=== PATIENT | male | born 1935 | race Hispanic/Latino ===

== ENCOUNTER → 2018-05-23 | Outpatient (CLI) | payer OTHER, MEDICARE ==
[~2018-05-23] MED LIST: DONE10TA36 PO; INSU100I21 SQ; MEMA10TA20 PO; METF-446 PO
== END | disposition home or self-care (01) ==
LOC: SHCH 13:31
PROVIDERS: ATTEND Internal Medicine Cardiovascular Disease
DX: R94.31 Abnormal electrocardiogram [ECG] [EKG] (principal); I51.7 Cardiomegaly
CPT/HCPCS: 93306

== ENCOUNTER 2018-11-29 20:58 | Emergency (ER) | payer OTHER, MEDICARE ==
[2018-11-29] MEDS ORDERED: LIDOCAINE HCL-MPF 1% 2ML VIAL ONE (21:25)
[2018-11-29] MEDS ORDERED: CEFTRIAXONE SODIUM 1 GM ONE (21:25)
[2018-11-29 21:56] LABS: BASOPHILS % (AUTO) 0.6 % (0.0-5.0); EOSINOPHILS % (AUTO) 3.3 % (0.0-8.0); HEMATOCRIT 38.2 % (42-54); LYMPHOCYTES % (AUTO) 31.3 % (21.0-51.0); MEAN CORPUSCULAR HEMOGLOBIN 30.2 pg (27.0-33.0); MEAN CORPUSCULAR HGB CONC 33.8 g/dL (32.0-36.0); MEAN CORPUSCULAR VOLUME 89.3 fL (79-99); MONOCYTES % (AUTO) 6.5 % (3.0-13.0); NEUTROPHILS % (AUTO) 58.3 % (40.0-77.0); PLATELET COUNT (AUTO) 131 K/uL (130-400); RED BLOOD CELL COUNT(AUTO) 4.28 MIL/uL (4.50-6.20); RED CELL DISTRIBUTION WIDTH 13.4 % (11.0-15.5); WHITE BLOOD COUNT (AUTO) 7.2 K/uL (4.8-10.8)
[2018-11-29 22:07] LABS: CREATININE 1.3 mg/dL (0.5-1.5); POTASSIUM 4.2 mmol/L (3.5-5.1)
[2018-11-29 22:12] LABS: ALBUMIN 3.3 g/dL (3.5-5.0); BILIRUBIN,TOTAL 0.3 mg/dL (0.2-1.0); TOTAL PROTEIN, SERUM 6.9 g/dL (6.0-8.3)
== END 2018-11-29 22:39 | disposition home or self-care (01) ==
LOC: EDH 20:58
DX: L03.115 Cellulitis of right lower limb (principal); E11.9 Type 2 diabetes mellitus without complications; F03.90 Unspecified dementia, unspecified severity, without behavioral disturbance, psychotic disturbance, mood disturbance, and anxiety; E78.5 Hyperlipidemia, unspecified; Z79.4 Long term (current) use of insulin
CPT/HCPCS: 36415; 80053; 85025; 96372; 99284; J0696; J3490

== ENCOUNTER 2019-09-30 08:56 | Emergency (ER) | payer OTHER, MEDICARE ==
[~2019-09-30 08:56] MED LIST changes: -MEMA10TA20 PO; +MEMA10TA55 PO
[2019-09-30] MEDS ORDERED: ACETAMINOPHEN 325 MG TAB ONE (10:00)
== END 2019-09-30 11:35 | disposition home or self-care (01) ==
LOC: EDH 08:56
DX: S00.03XA Contusion of scalp, initial encounter (principal); W18.39XA Other fall on same level, initial encounter; Y93.89 Activity, other specified; Y92.89 Other specified places as the place of occurrence of the external cause; Y99.8 Other external cause status; S13.9XXA Sprain of joints and ligaments of unspecified parts of neck, initial encounter; F03.90 Unspecified dementia, unspecified severity, without behavioral disturbance, psychotic disturbance, mood disturbance, and anxiety; E11.9 Type 2 diabetes mellitus without complications; E78.5 Hyperlipidemia, unspecified; Z87.891 Personal history of nicotine dependence; Z79.899 Other long term (current) drug therapy
CPT/HCPCS: 70450; 71045; 72125; 72170

== ENCOUNTER 2020-04-16 23:45 | Inpatient (IN) | payer OTHER, MEDICARE ==
[~2020-04-16] VITALS: Ht 175.3 cm; Wt 76.8 kg
[2020-04-17 00:26] LABS: ABG BASE EXCESS -0.3 mmol/L (-2.0-3.0); ABG HCO3 23.4 mmol/L (21.0-28.0); ABG OXYGEN SATURATION 95.3 % (95.0-99.0); ABG PCO2 36 mmHg (35-48)
[2020-04-17 00:35] LABS: BASOPHILS % (AUTO) 0.3 % (0.0-5.0); EOSINOPHILS % (AUTO) 0.3 % (0.0-8.0); HEMATOCRIT 41.3 % (42-54); LYMPHOCYTES % (AUTO) 3.2 % (21.0-51.0); MEAN CORPUSCULAR HEMOGLOBIN 29.6 pg (27.0-33.0); MEAN CORPUSCULAR HGB CONC 33.9 g/dL (32.0-36.0); MEAN CORPUSCULAR VOLUME 87.3 fL (79-99); MONOCYTES % (AUTO) 2.5 % (3.0-13.0); NEUTROPHILS % (AUTO) 93.2 % (40.0-77.0); PLATELET COUNT (AUTO) 152 K/uL (130-400); RED BLOOD CELL COUNT(AUTO) 4.73 MIL/uL (4.50-6.20); RED CELL DISTRIBUTION WIDTH 13.3 % (11.0-15.5); WHITE BLOOD COUNT (AUTO) 13.5 K/uL (4.8-10.8)
[2020-04-17 00:36] LABS: POTASSIUM 3.9 mmol/L (3.5-5.1)
[2020-04-17 00:37] LABS: CREATININE 1.4 mg/dL (0.5-1.5)
[2020-04-17 00:47] LABS: ALBUMIN 3.4 g/dL (3.5-5.0); BILIRUBIN,TOTAL 0.5 mg/dL (0.2-1.0); TOTAL PROTEIN, SERUM 7.3 g/dL (6.0-8.3); TROPONIN I 0.59 ng/mL (0.00-0.06)
[2020-04-17 00:59] LABS: INR 0.99 (0.85-1.15); PARTIAL THROMBOPLASTIN TIME 21.2 SEC (26.3-35.5); PROTHROMBIN TIME 10.7 SEC (9.6-11.6)
[2020-04-17] MEDS ORDERED: IOHEXOL-350 75 ML VIAL IV ONE (01:06)
[2020-04-17] MEDS ORDERED: AZITHROMYCIN 500MG+NS 250ML 250 ML IV ONE (01:23)
[2020-04-17] MEDS ORDERED: CEFTRIAXONE SODIUM 1 GM ONE (01:23)
[2020-04-17] MEDS ORDERED: LACTULOSE 20 GM/30 ML UDCUP PO PRN (02:00)
[2020-04-17] MEDS: CEFTRIAXONE SODIUM 1 GM IVP SCH ×2 (02:00→14:09)
[2020-04-17] MEDS ORDERED: ERGOCALCIFEROL (VITAMIN D2) 50,000 UNIT CAPSULE PO ONE (02:00)
[2020-04-17] MEDS ORDERED: DOXYCYCLINE 100MG+NS 250ML IV SCH (02:00)
[2020-04-17] MEDS ORDERED: ONDANSETRON HCL 4 MG/2 ML VIAL IV PRN (02:00)
[2020-04-17] MEDS ORDERED: DOXYCYCLINE 100MG+NS 250ML 250 ML IV ONE (02:28)
[2020-04-17] MEDS ORDERED: INSULIN HUMULIN R 100 UNIT/ML 3ML ONE (02:52)
[2020-04-17 03:07] LABS: APPEARANCE,URINE Clear (CLEAR); BILIRUBIN,URINE Negative (NEGATIVE); COLOR,URINE Yellow (YELLOW); GLUCOSE, URINE (UA) 500 mg/dL (NEGATIVE); KETONES,URINE Negative (NEGATIVE); LEUKOCYTE ESTERASE ,URINE Negative (NEGATIVE); NITRATE,URINE Negative (NEGATIVE); OCCULT BLOOD,URINE Negative (NEGATIVE); PH,URINE 5.5 (5.0-8.0); PROTEIN,URINE POS 1+ mg/dL (NEGATIVE)
[2020-04-17 03:48] LABS: TROPONIN I 1.23 ng/mL (0.00-0.06)
[2020-04-17] MEDS ORDERED: HEPARIN SODIUM 5000UNIT/ML 1ML VIAL ONE (04:01)
[2020-04-17] MEDS ORDERED: HEPARIN 25000 UNITS/250 ML D5W 250 ML IV ONE (04:01)
[2020-04-17 05:05] VITALS: BP 147/52
[2020-04-17] MEDS ORDERED: HEPARIN 25000 UNITS/D5W 250ML IV SCH (05:15)
[2020-04-17 05:39] LABS: CHOLESTEROL 179 mg/dL (<200); HDL CHOLESTEROL 45 mg/dL (29-71); LDL DIRECT 113 mg/dL (0-99); TRIGLYCERIDES 135 mg/dL (30-200)
[2020-04-17 05:41] LABS: HEMOGLOBIN A1C 8.3 % (4.0-6.0)
[2020-04-17 07:22] LABS: INR 1.03 (0.85-1.15); PARTIAL THROMBOPLASTIN TIME 80.1 SEC (26.3-35.5); PROTHROMBIN TIME 11.1 SEC (9.6-11.6)
[2020-04-17] MEDS: INSULIN HUMULIN R 100 UNIT/ML 3ML SQ SCH ×4 (07:30→21:37)
[2020-04-17 07:55] VITALS: BP 150/51
[2020-04-17] MEDS ORDERED: METHYLPREDNISOLONE SOD SUCC 40MG/ML 1ML IVP SCH (09:00)
[2020-04-17] MEDS ORDERED: ENOXAPARIN SODIUM 40 MG/0.4 ML SYRINGE SQ SCH (09:00)
[2020-04-17] MEDS: ZINC SULFATE 220 CAPSULE PO SCH (10:49)
[2020-04-17] MEDS: FAMOTIDINE 20MG TAB 20 MG TAB PO SCH (10:49)
[2020-04-17] MEDS: ASCORBIC ACID 500 MG TAB PO SCH (10:50)
[2020-04-17 12:55] VITALS: BP 154/63
[2020-04-17] MEDS: DOXYCYCLINE 100MG+NS 250ML 250 ML IV SCH (14:11)
--- NOTE | 2020-04-17 15:36 | NUR ---
DC PLAN PATIENT LIVES WITH SPOUSE [facility] PAT[facility] HOME PHONE IS [phone]. PATIENT INDEPENDENT ABLE TO PERFORM ADL'S. PATIENT HAS NO SERVICES. WALKER ANS WHEEL CHAIR. FEELS SAFE TO RETURN HOME. Addendum: 04/17/20 at 1539 by BERT COBIAN RN CM Amended: Links added.
[2020-04-17 16:58] VITALS: BP 156/75
[2020-04-17 19:00] VITALS: BP 152/64
--- NOTE | 2020-04-17 19:12 | NUR ---
APPROX 1510P--STAFF NOTIFIED AUTHOR THAT PATIENT WAS IN THE RESTROOM WITH DAVIS DRAINING ON FLOOR AND LEFT HAND IV OUT WITH SMALL SCANTS OF BLOOD NOTED. PRESSURE HELD TO LEFT HAND SITE AND SECURED WITH TAPE WITH NO PROBLEMS. AT 1530--20 G PLACED IN RIGHT WRIST. NURSE INFORMED OF RECENT PTT LAB VALUE OF 100 PLUS. HEPARIN CONTINUES TO INFUSED IN RIGHT WRIST WITH NO S/S OF BLEEDING OR BRUISING NOTED 1830--UNABLE TO HANG DOXYCYCLINE IV MED DUE TO LACK OF IV DURING TOUR AND ATTEMPTS. INFORMED ONCOMING NURSE TO HANG IF NO OTHER DOSE IS NEEDED AT THIS TIME. NURSE VERBALIZE UNDERSTANDING
[2020-04-17 23:00] VITALS: BP 101/66
[2020-04-18] MEDS: CEFTRIAXONE SODIUM 1 GM IVP SCH ×2 (02:36→14:01)
[2020-04-18] MEDS: AZITHROMYCIN 500MG+NS 250ML 250 ML IV SCH (02:36)
[2020-04-18] MEDS: DOXYCYCLINE 100MG+NS 250ML 250 ML IV SCH ×2 (02:36→14:01)
[2020-04-18 03:00] VITALS: BP 107/91
[2020-04-18] MEDS ORDERED: CEFTRIAXONE SODIUM 1 GM IVP SCH (03:00)
[2020-04-18 04:02] LABS: BASOPHILS % (AUTO) 0.2 % (0.0-5.0); EOSINOPHILS % (AUTO) 0.4 % (0.0-8.0); HEMATOCRIT 29.4 % (42-54); LYMPHOCYTES % (AUTO) 14.9 % (21.0-51.0); MEAN CORPUSCULAR HEMOGLOBIN 30.2 pg (27.0-33.0); MEAN CORPUSCULAR HGB CONC 33.7 g/dL (32.0-36.0); MEAN CORPUSCULAR VOLUME 89.6 fL (79-99); MONOCYTES % (AUTO) 6.2 % (3.0-13.0); PLATELET COUNT (AUTO) 100 K/uL (130-400); RED BLOOD CELL COUNT(AUTO) 3.28 MIL/uL (4.50-6.20); RED CELL DISTRIBUTION WIDTH 13.6 % (11.0-15.5); WHITE BLOOD COUNT (AUTO) 9.2 K/uL (4.8-10.8)
[2020-04-18 04:15] LABS: ALBUMIN 2.2 g/dL (3.5-5.0); BILIRUBIN,TOTAL 0.4 mg/dL (0.2-1.0); CREATININE 0.9 mg/dL (0.5-1.5); CRP QUANTITATIVE 77.1 mg/L (0.00-9.0); TOTAL PROTEIN, SERUM 4.9 g/dL (6.0-8.3)
[2020-04-18 04:18] LABS: POTASSIUM 2.9 mmol/L (3.5-5.1)
[2020-04-18 04:21] LABS: INR 1.35 (0.85-1.15); PROTHROMBIN TIME 14.4 SEC (9.6-11.6)
[2020-04-18 04:24] LABS: PARTIAL THROMBOPLASTIN TIME > 120.0 SEC (26.3-35.5)
--- NOTE | 2020-04-18 04:45 | NUR ---
LABS ABNORMAL LAB RESULTS CALLED IN H&H=9.9---TGFG=475---I+=2.9. BAND LINING BANDER CRISTINA Mcclain NP CONTACTED AND UPDATED OF ABNORMAL LABS. ORDERS GIVEN FOLLOWS 1) OBTAIN STOOL FOR OCCULT BLOOD 2)START POTASSIUM PROTOCOL AND GIVE DOSE PER PROTOCOL 3)CONT. TO FOLLOW HEPARIN PROTOCOL FOR APTT.ORDERS READ BACK AND TRANSCRIBED. PATIENT IN BED RESTING, NO C/O PAIN OR DISTRESS. CALL DEVICE WITHIN REACH WILL CONT. TO MONITOR.
[2020-04-18] MEDS: POTASSIUM CHLORIDE 20 MEQ ERTAB PO PRN ×4 (05:00→12:34)
[2020-04-18] MEDS ORDERED: POTASSIUM CHLORIDE 20MEQ/100ML 100 ML IV PRN (05:00)
[2020-04-18] MEDS ORDERED: LIDOCAINE HCL-MPF 1% 2ML VIAL IV PRN (05:00)
[2020-04-18] MEDS: INSULIN HUMULIN R 100 UNIT/ML 3ML SQ SCH ×4 (07:03→20:17)
[2020-04-18 08:00] VITALS: BP 152/61
[2020-04-18] MEDS: ASCORBIC ACID 500 MG TAB PO SCH (09:08)
[2020-04-18] MEDS: ZINC SULFATE 220 CAPSULE PO SCH (09:09)
[2020-04-18] MEDS: FAMOTIDINE 20MG TAB 20 MG TAB PO SCH (09:09)
[2020-04-18 12:27] VITALS: BP 161/67
--- NOTE | 2020-04-18 15:00 | NUR ---
As of 1100 am Current PTT of 78.3, infusing rated decreased to 11 units/hr in which is 8.8 ml/hr. Heparin continues to infuse to left wrist with no s/s of bleeding or bruising noted to site at this time. patient denies any chest pain or discomfort during the tour. will continue to monitor as needed during tour.
[2020-04-18 16:58] VITALS: BP 157/69
[2020-04-18 19:00] VITALS: BP 159/58
--- NOTE | 2020-04-18 21:00 | NUR ---
FULL REPORT GIVEN TO NURSE ON 4TH FLOOR AWARE OF PTT PENDING AND POTASSIUM LEVEL PENDING
--- NOTE | 2020-04-18 21:01 | NUR ---
PT DENIES SOB, DENIES CHEST PAIN HEPARIN AT 11 UNITS / HR
[2020-04-19] VITALS (8 sets, daily range): BP systolic 115–172; BP diastolic 50–61
[2020-04-19] MEDS: DOXYCYCLINE 100MG+NS 250ML 250 ML IV SCH ×2 (02:00→13:28)
[2020-04-19] MEDS: CEFTRIAXONE SODIUM 1 GM IVP SCH ×2 (02:16→13:29)
[2020-04-19] MEDS: AZITHROMYCIN 500MG+NS 250ML 250 ML IV SCH (02:17)
[2020-04-19 06:03] LABS: BASOPHILS % (AUTO) 0.4 % (0.0-5.0); EOSINOPHILS % (AUTO) 3.4 % (0.0-8.0); HEMATOCRIT 38.1 % (42-54); LYMPHOCYTES % (AUTO) 26.2 % (21.0-51.0); MEAN CORPUSCULAR HEMOGLOBIN 29.8 pg (27.0-33.0); MEAN CORPUSCULAR HGB CONC 33.6 g/dL (32.0-36.0); MEAN CORPUSCULAR VOLUME 88.6 fL (79-99); MONOCYTES % (AUTO) 7.5 % (3.0-13.0); NEUTROPHILS % (AUTO) 62.1 % (40.0-77.0); PLATELET COUNT (AUTO) 125 K/uL (130-400); RED CELL DISTRIBUTION WIDTH 14.2 % (11.0-15.5); WHITE BLOOD COUNT (AUTO) 7.9 K/uL (4.8-10.8)
[2020-04-19 06:27] LABS: ALBUMIN 2.8 g/dL (3.5-5.0); BILIRUBIN,TOTAL 0.4 mg/dL (0.2-1.0); CRP QUANTITATIVE 82.1 mg/L (0.00-9.0); POTASSIUM 4.1 mmol/L (3.5-5.1); TOTAL PROTEIN, SERUM 6.4 g/dL (6.0-8.3)
[2020-04-19] MEDS: INSULIN HUMULIN R 100 UNIT/ML 3ML SQ SCH ×4 (07:03→21:19)
--- NOTE | 2020-04-19 08:00 | NUR ---
1:[address], AT PRESENT PT. CONFUSED, TALKING RANDOMLY. HEPARIN DRIP IN PLACE AND INFUSING AT 11 ML/HR NO DISCOMFORT VOICED.
[2020-04-19] MEDS: ZINC SULFATE 220 CAPSULE PO SCH (08:51)
[2020-04-19] MEDS: FAMOTIDINE 20MG TAB 20 MG TAB PO SCH (08:51)
[2020-04-19] MEDS: ASCORBIC ACID 500 MG TAB PO SCH (08:51)
--- NOTE | 2020-04-19 10:05 | NUR ---
DR. SHI IN TO SEE PT. STATES DR. ALEGRE WILL SEE PT. IN AM AND TO NPO AT MIDNIGHT.
[2020-04-19] MEDS ORDERED: VANCOMYCIN PROTOCOL PER PHARMACY IV SCH (11:15)
[2020-04-19] MEDS ORDERED: VANCOMYCIN 1.5 GM in SODIUM CHLORIDE 0.9% 250 ML IV SCH (11:30)
[2020-04-19] MEDS ORDERED: COMPOUND IV REFRIGERATED 1 EACH IVSOLN MISC PRN (11:45)
[2020-04-19] MEDS: VANCOMYCIN 750MG + NS 250 ML IV SCH ×2 (21:07)
[2020-04-20] MEDS: DOXYCYCLINE 100MG+NS 250ML 250 ML IV SCH ×2 (03:14→15:43)
[2020-04-20] MEDS: CEFTRIAXONE SODIUM 1 GM IVP SCH ×2 (03:14→15:44)
[2020-04-20 03:54] VITALS: BP 151/71
[2020-04-20 05:27] LABS: BASOPHILS % (AUTO) 0.5 % (0.0-5.0); EOSINOPHILS % (AUTO) 3.8 % (0.0-8.0); HEMATOCRIT 38.5 % (42-54); LYMPHOCYTES % (AUTO) 22.9 % (21.0-51.0); MEAN CORPUSCULAR HEMOGLOBIN 29.7 pg (27.0-33.0); MEAN CORPUSCULAR HGB CONC 33.5 g/dL (32.0-36.0); MEAN CORPUSCULAR VOLUME 88.5 fL (79-99); MONOCYTES % (AUTO) 6.5 % (3.0-13.0); NEUTROPHILS % (AUTO) 65.8 % (40.0-77.0); PLATELET COUNT (AUTO) 138 K/uL (130-400); RED BLOOD CELL COUNT(AUTO) 4.35 MIL/uL (4.50-6.20); WHITE BLOOD COUNT (AUTO) 8.8 K/uL (4.8-10.8)
[2020-04-20 05:54] LABS: ALBUMIN 2.8 g/dL (3.5-5.0); BILIRUBIN,TOTAL 0.4 mg/dL (0.2-1.0); CREATININE 1.1 mg/dL (0.5-1.5); CRP QUANTITATIVE 50.6 mg/L (0.00-9.0); POTASSIUM 4.3 mmol/L (3.5-5.1); TOTAL PROTEIN, SERUM 6.7 g/dL (6.0-8.3)
[2020-04-20] MEDS: INSULIN HUMULIN R 100 UNIT/ML 3ML SQ SCH ×4 (06:42→21:00)
[2020-04-20 08:00] VITALS: BP 187/65
[2020-04-20 12:00] VITALS: BP 110/69
[2020-04-20] MEDS: ZINC SULFATE 220 CAPSULE PO SCH (15:43)
[2020-04-20] MEDS: VANCOMYCIN 750MG + NS 250 ML IV SCH ×4 (15:43→21:35)
[2020-04-20] MEDS: ASCORBIC ACID 500 MG TAB PO SCH (15:43)
[2020-04-20] MEDS: FAMOTIDINE 20MG TAB 20 MG TAB PO SCH (15:43)
[2020-04-20 16:00] VITALS: BP 110/69
--- NOTE | 2020-04-20 18:50 | NUR ---
Neuro was consulted and made rounds todat. CT head without contrast was ordered and performed. Results reviewed by Dr Garcia. ID made rounds and ordered to continue current therapy. Heparin d/c'd. Diet ordered and pt refused. No complaints of pain or signs of acute distress. Family that work's here visited and daughter called. Pacemaker pending clearance by ID.
[2020-04-20 20:05] VITALS: BP 167/92
[2020-04-20 23:39] VITALS: BP 189/66
[2020-04-21] VITALS (7 sets, daily range): BP systolic 135–200; BP diastolic 51–71
[2020-04-21] MEDS: CEFTRIAXONE SODIUM 1 GM IVP SCH ×2 (02:53→14:52)
[2020-04-21] MEDS: DOXYCYCLINE 100MG+NS 250ML 250 ML IV SCH (02:54)
[2020-04-21] MEDS: INSULIN HUMULIN R 100 UNIT/ML 3ML SQ SCH ×4 (07:30→20:51)
--- NOTE | 2020-04-21 07:48 | NUR ---
MISSED [facility] FROM YESTERDAY 04/20/20 2100. CALLED PHARMACIST, MAXWELL AND ORDERED VT STAT.
[2020-04-21] MEDS: ASCORBIC ACID 500 MG TAB PO SCH (08:48)
[2020-04-21] MEDS: ZINC SULFATE 220 CAPSULE PO SCH (08:48)
[2020-04-21] MEDS: FAMOTIDINE 20MG TAB 20 MG TAB PO SCH (08:49)
[2020-04-21] MEDS: ACETAMINOPHEN 325 MG TAB PO PRN (09:02)
[2020-04-21] MEDS: VANCOMYCIN 1GM+NS 250ML 250 ML IV SCH ×2 (10:11→21:49)
[2020-04-21] MEDS: AMPICILLIN 2GM+NS 100ML 100 ML IV SCH ×3 (10:15→22:15)
[2020-04-21] MEDS: LISINOPRIL 10 MG TABLET PO SCH (10:52)
[2020-04-21] MEDS ORDERED: ZOLPIDEM TARTRATE 5 MG TAB PO SCH (21:00)
[2020-04-22] VITALS: BP 179/63
[2020-04-22] MEDS: CEFTRIAXONE SODIUM 1 GM IVP SCH ×2 (02:00→14:00)
[2020-04-22] MEDS ORDERED: SODIUM CHLORIDE 0.9% 500ML 500 ML IV ONE (03:17)
[2020-04-22 03:48] VITALS: BP 152/61
[2020-04-22] MEDS: AMPICILLIN 2GM+NS 100ML 100 ML IV SCH ×4 (04:15→22:33)
[2020-04-22 06:07] LABS: BASOPHILS % (AUTO) 0.2 % (0.0-5.0); EOSINOPHILS % (AUTO) 2.1 % (0.0-8.0); HEMATOCRIT 38.9 % (42-54); LYMPHOCYTES % (AUTO) 13.3 % (21.0-51.0); MEAN CORPUSCULAR HEMOGLOBIN 29.8 pg (27.0-33.0); MEAN CORPUSCULAR HGB CONC 33.9 g/dL (32.0-36.0); MEAN CORPUSCULAR VOLUME 87.8 fL (79-99); NEUTROPHILS % (AUTO) 74.1 % (40.0-77.0); PLATELET COUNT (AUTO) 150 K/uL (130-400); RED BLOOD CELL COUNT(AUTO) 4.43 MIL/uL (4.50-6.20); RED CELL DISTRIBUTION WIDTH 13.9 % (11.0-15.5); WHITE BLOOD COUNT (AUTO) 8.9 K/uL (4.8-10.8)
[2020-04-22 06:34] LABS: ALBUMIN 2.7 g/dL (3.5-5.0); BILIRUBIN,TOTAL 0.7 mg/dL (0.2-1.0); CREATININE 0.9 mg/dL (0.5-1.5); POTASSIUM 3.6 mmol/L (3.5-5.1); TOTAL PROTEIN, SERUM 6.6 g/dL (6.0-8.3)
[2020-04-22] MEDS: INSULIN HUMULIN R 100 UNIT/ML 3ML SQ SCH ×4 (07:30→20:22)
[2020-04-22 08:00] VITALS: BP 178/65
[2020-04-22] MEDS: VANCOMYCIN 1GM+NS 250ML 250 ML IV SCH ×2 (09:00→20:29)
[2020-04-22] MEDS: FAMOTIDINE 20MG TAB 20 MG TAB PO SCH (10:06)
[2020-04-22] MEDS: ASCORBIC ACID 500 MG TAB PO SCH (10:06)
[2020-04-22] MEDS: LISINOPRIL 10 MG TABLET PO SCH (10:07)
[2020-04-22] MEDS: ACETAMINOPHEN 325 MG TAB PO PRN ×3 (10:21→17:52)
[2020-04-22 11:53] VITALS: BP 167/62
--- NOTE | 2020-04-22 16:21 | NUR ---
CM NOTE/DCP WITH SON PATIENT CONFUSED. NEXT OF KIN CALLED, PASCUAL PATEL, SON. PER SON, OPEN TO SNF BUT WANTS PATIENT TO RETURN HOME. INFORMED SON THAT ID MD HAS SAID PATIENT WILL REQUIRES ALL 3 IV ABT X2 WEEKS AND HOME HEALTH WOULD NOT BE AN OPTION D/T MULTIPLE IVS SEVERAL TIMES PER DAY. SNF IN NETWORK CHOICES GIVEN TO SON. PER SON, WILL DISCUSS SNF WITH FAMILY. OK FOR ME TO CALL IN AM FOR DECISION. CM TO FOLLOW UP.
[2020-04-22 16:49] VITALS: BP 153/69
[2020-04-22 20:00] VITALS: BP 165/65
[2020-04-22] MEDS: ZOLPIDEM TARTRATE 5 MG TAB PO SCH (20:29)
[2020-04-23] VITALS: BP 178/77
[2020-04-23] MEDS: HYDRALAZINE HCL 20 MG/ML VIAL IV PRN ×2 (00:32→21:34)
[2020-04-23] MEDS: CEFTRIAXONE SODIUM 1 GM IVP SCH ×2 (02:53→13:34)
[2020-04-23 04:00] VITALS: BP 177/66
[2020-04-23] MEDS: AMPICILLIN 2GM+NS 100ML 100 ML IV SCH ×4 (04:27→22:59)
[2020-04-23 05:32] LABS: BASOPHILS % (AUTO) 0.2 % (0.0-5.0); EOSINOPHILS % (AUTO) 1.7 % (0.0-8.0); HEMATOCRIT 39.7 % (42-54); LYMPHOCYTES % (AUTO) 16.1 % (21.0-51.0); MEAN CORPUSCULAR HEMOGLOBIN 29.6 pg (27.0-33.0); MEAN CORPUSCULAR HGB CONC 33.8 g/dL (32.0-36.0); MEAN CORPUSCULAR VOLUME 87.8 fL (79-99); NEUTROPHILS % (AUTO) 72.7 % (40.0-77.0); PLATELET COUNT (AUTO) 161 K/uL (130-400); RED BLOOD CELL COUNT(AUTO) 4.52 MIL/uL (4.50-6.20); RED CELL DISTRIBUTION WIDTH 14.1 % (11.0-15.5)
[2020-04-23] MEDS: INSULIN HUMULIN R 100 UNIT/ML 3ML SQ SCH ×4 (05:49→21:00)
[2020-04-23 06:09] LABS: ALBUMIN 2.6 g/dL (3.5-5.0); BILIRUBIN,TOTAL 0.4 mg/dL (0.2-1.0); CREATININE 0.9 mg/dL (0.5-1.5); POTASSIUM 3.8 mmol/L (3.5-5.1); TOTAL PROTEIN, SERUM 6.6 g/dL (6.0-8.3)
[2020-04-23 08:30] VITALS: BP 159/59
[2020-04-23] MEDS: LISINOPRIL 10 MG TABLET PO SCH (09:01)
[2020-04-23] MEDS: ASCORBIC ACID 500 MG TAB PO SCH (09:01)
[2020-04-23] MEDS: FAMOTIDINE 20MG TAB 20 MG TAB PO SCH (09:01)
[2020-04-23] MEDS: VANCOMYCIN 1GM+NS 250ML 250 ML IV SCH ×2 (09:11→21:34)
--- NOTE | 2020-04-23 15:22 | NUR ---
CM NOTE/JACKELYN CAICEDO DC PLAN CALLED AND SPOKETP SON. CONSENT RECEIVED FOR [facility] CAIC[facility] PLAN-A SNF AND [facility] PLAN-B SNF. CLINICAL PACKET, PT NOTES, LATEST COVID RESULTS, AND PASRR EMAILED TO JOSÉ KATZ. EVELIN WITH [facility] CAICEDO MADE AWARE OF REFERRAL, WILL LET JOSÉ KNOW. CM TO FOLLOW UP. PATIENT STILL CONTINUES WITH 1:1.
[2020-04-23 16:52] VITALS: BP 156/59
[2020-04-23 20:00] VITALS: BP 181/63
[2020-04-23] MEDS: ZOLPIDEM TARTRATE 5 MG TAB PO SCH (21:34)
[2020-04-24] VITALS (7 sets, daily range): BP systolic 138–169; BP diastolic 49–95
[2020-04-24 04:30] LABS: BASOPHILS % (AUTO) 0.4 % (0.0-5.0); EOSINOPHILS % (AUTO) 1.1 % (0.0-8.0); HEMATOCRIT 37.1 % (42-54); LYMPHOCYTES % (AUTO) 17.9 % (21.0-51.0); MEAN CORPUSCULAR HEMOGLOBIN 29.9 pg (27.0-33.0); MEAN CORPUSCULAR VOLUME 87.9 fL (79-99); NEUTROPHILS % (AUTO) 72.3 % (40.0-77.0); PLATELET COUNT (AUTO) 156 K/uL (130-400); RED BLOOD CELL COUNT(AUTO) 4.22 MIL/uL (4.50-6.20); RED CELL DISTRIBUTION WIDTH 14.2 % (11.0-15.5); WHITE BLOOD COUNT (AUTO) 7.4 K/uL (4.8-10.8)
[2020-04-24] MEDS: AMPICILLIN 2GM+NS 100ML 100 ML IV SCH ×4 (04:30→22:29)
[2020-04-24 05:08] LABS: ALBUMIN 2.5 g/dL (3.5-5.0); BILIRUBIN,TOTAL 0.6 mg/dL (0.2-1.0); CREATININE 0.9 mg/dL (0.5-1.5); POTASSIUM 3.4 mmol/L (3.5-5.1); TOTAL PROTEIN, SERUM 6.3 g/dL (6.0-8.3)
[2020-04-24] MEDS: INSULIN HUMULIN R 100 UNIT/ML 3ML SQ SCH ×4 (05:58→20:56)
[2020-04-24] MEDS: POTASSIUM CHLORIDE 10% ELIXIR 20 MEQ/15 ML UDCUP PO PRN (06:00)
[2020-04-24] MEDS: VANCOMYCIN 1GM+NS 250ML 250 ML IV SCH ×2 (09:27→20:45)
[2020-04-24] MEDS: FAMOTIDINE 20MG TAB 20 MG TAB PO SCH (09:27)
[2020-04-24] MEDS: LISINOPRIL 10 MG TABLET PO SCH (09:27)
[2020-04-24] MEDS: ASCORBIC ACID 500 MG TAB PO SCH (09:27)
[2020-04-24 14:35] LABS: PROTHROMBIN TIME 10.8 SEC (9.6-11.6)
--- NOTE | 2020-04-24 17:18 | NUR ---
CM NOTE/JACKELYN CAICEDO AUTH RECEIVED PER [facility], AUTHORIZATION GIVEN FOR JACKELYN CAICEDO. 1:1 REMOVED TODAY AT NOON. PENDING PICC LINE AND COVID RESULTS, POSSIBLE DC TO SNF VIA EMS TOMORROW, 04/25/2020. PRIMARY NURSE, TONE BECERRA, MADE AWARE.
[2020-04-24] MEDS: ZOLPIDEM TARTRATE 5 MG TAB PO SCH (20:45)
--- NOTE | 2020-04-24 20:45 | NUR ---
MEDS SHIFT ASSESSMENT DONE, PLEASE REFER TO CHART. DUE MEDS ADMINISTERED, TOLERATED WELL. CALL LIGHT WITHIN REACH. WILL MONITOR PT.
--- NOTE | 2020-04-24 22:30 | NUR ---
MEDS PT FAIRLY ASLEEP. NO DISTRESS NOTED. KEPT UNDISTURBED FOR NOW. UE IV MEDS HUNG. WILL CONTINUE TO MONITOR.
--- NOTE | 2020-04-25 01:48 | NUR ---
ROUNDS PT FAIRLY ASLEEP. NO DISTRESS NOTED. KEPT UNDISTURBED FOR NOW. WILL MONITOR PT.
[2020-04-25] MEDS: POTASSIUM CHLORIDE 10% ELIXIR 20 MEQ/15 ML UDCUP PO PRN (03:47)
[2020-04-25] MEDS: AMPICILLIN 2GM+NS 100ML 100 ML IV SCH ×4 (03:47→21:58)
[2020-04-25 03:56] VITALS: BP 162/52
[2020-04-25] MEDS: POTASSIUM CHLORIDE 20 MEQ ERTAB PO PRN (06:02)
[2020-04-25] MEDS: INSULIN HUMULIN R 100 UNIT/ML 3ML SQ SCH ×4 (06:02→20:44)
--- NOTE | 2020-04-25 06:12 | NUR ---
MEDS PT'S REPEAT POTASSIUM=3.6, STARTED ON PO PROTOCOL. AWAKENED PT FOR MED, TOLERATED WELL. KEPT RESTED IN BED. FOR MORE CARE.
[2020-04-25 08:00] VITALS: BP 131/54
[2020-04-25] MEDS: VANCOMYCIN 1GM+NS 250ML 250 ML IV SCH ×2 (08:35→20:44)
[2020-04-25] MEDS: FAMOTIDINE 20MG TAB 20 MG TAB PO SCH (08:36)
[2020-04-25] MEDS: ASCORBIC ACID 500 MG TAB PO SCH (08:36)
[2020-04-25] MEDS: LISINOPRIL 10 MG TABLET PO SCH (08:36)
[2020-04-25 11:00] VITALS: BP 146/56
[2020-04-25 16:00] VITALS: BP 148/73
--- NOTE | 2020-04-25 16:50 | NUR ---
PT IS CALM AND PLEASANTLY CONFUSED. [facility] HOME IS NO LONGER TAKING COVID PTS. PAYROLL MANAGER, PHYSICIAN AND FLOOR TILING PROFESSIONAL NOTIFIED OF THESE FINDINGS
--- NOTE | 2020-04-25 17:02 | NUR ---
SPOKE WITH JAY JAY THE PTS DAUGHTER INFORMING HER OF THE POSTIVE COVID STATUS OF HER FATHER AND HE WILL BE TRANSFERRED TO THE COVID UNIT
[2020-04-25] MEDS: ACETAMINOPHEN 325 MG TAB PO PRN (17:42)
--- NOTE | 2020-04-25 18:35 | NUR ---
RECEIVED PT FROM 4TH FLOOR REPORT RECEIVED FROM SANDIE BECERRA. SITTER AT PT BEDSIDE HAS DEMENTIAL AND CONFUSION. PT VSS.
[2020-04-25 18:52] VITALS: BP 166/69
--- NOTE | 2020-04-25 19:08 | NUR ---
cm note spoke to Pily montero at [facility], and states was made aware by primary nurse pt is postivie for Covid, per Pily rep states unable to accept pt at this time due to they are not accepting covid positive pts at this time.
[2020-04-25] MEDS: ZOLPIDEM TARTRATE 5 MG TAB PO SCH (20:43)
[2020-04-25 23:00] VITALS: BP 157/69
[2020-04-26 03:00] VITALS: BP 163/62
[2020-04-26] MEDS: HYDRALAZINE HCL 20 MG/ML VIAL IV PRN ×2 (03:51→20:08)
--- NOTE | 2020-04-26 03:59 | NUR ---
Elevated BP BP 163/62, medicated with Hydralazine 10mg IV as ordered. Patient denies any other symptoms at this time.
[2020-04-26] MEDS: AMPICILLIN 2GM+NS 100ML 100 ML IV SCH ×4 (04:20→21:59)
[2020-04-26] MEDS: INSULIN HUMULIN R 100 UNIT/ML 3ML SQ SCH ×4 (06:34→20:19)
[2020-04-26 08:00] VITALS: BP 168/77
[2020-04-26] MEDS: VANCOMYCIN 1GM+NS 250ML 250 ML IV SCH ×2 (08:12→20:04)
[2020-04-26] MEDS: FAMOTIDINE 20MG TAB 20 MG TAB PO SCH (08:13)
[2020-04-26] MEDS: ASCORBIC ACID 500 MG TAB PO SCH (08:13)
[2020-04-26] MEDS: LISINOPRIL 10 MG TABLET PO SCH (08:13)
[2020-04-26 12:00] VITALS: BP 156/57
[2020-04-26 16:00] VITALS: BP 132/66
[2020-04-26 20:00] VITALS: BP 170/64
[2020-04-26] MEDS: ZOLPIDEM TARTRATE 5 MG TAB PO SCH (20:03)
[2020-04-26 23:48] VITALS: BP 133/75
[2020-04-27] VITALS (7 sets, daily range): BP systolic 113–175; BP diastolic 52–74
[2020-04-27] MEDS: ACETAMINOPHEN 325 MG TAB PO PRN (01:14)
[2020-04-27] MEDS: AMPICILLIN 2GM+NS 100ML 100 ML IV SCH ×4 (04:15→22:49)
--- NOTE | 2020-04-27 05:44 | NUR ---
[employer]S SALESPERSON TECH CALLED TO REPORT THAT PATIENT HAS BEEN INTERMITTENTLY HAVING EPISODES OF 3RD DEGREE HEART BLOCK SINCE YESTERDAY EVENING. HE HAS BEEN MAINTAINING 3RD DEGREE HEART BLOCK SINCE 530. PATIENT HAD CARDIOLOGY CONSULTATION DONE ON 04/[address] DAY AND DR[address] ALEGRE WHO ARE BOTH AWARE THAT THE PATIENT HAS A COMPLETE HEART BLOCK. DR. ALEGRE HAS RECOMMENDED THE PATIENT A CANDIDATE FOR A PACEMAKER AT A LATER DATE WHEN HE IS CLEARED BY DR. BENNETT. WINSTON Thrasher NOTIFIED OF THE PATIENT'S CONDITION WITH ORDERS TO DOCUMENT FINDING AND PERFORM EKG THIS AM. PATIENT DENIES HAVING ANY CHEST PAIN, DIZZINESS OR ANY OTHER SYMPTOM AT THIS TIME. WE WILL CONTINUE TO MONITOR PATIENT STATUS.
[2020-04-27] MEDS: INSULIN HUMULIN R 100 UNIT/ML 3ML SQ SCH ×4 (06:26→21:00)
--- NOTE | 2020-04-27 07:01 | NUR ---
[address]RD [address] BLOCK DR. NAGEL ROUNDING ON THE UNIT AT THIS TIME, INFORMED ABOUT THE CHANGE STATUS WITH RECOMMENDATION TO INFORM CARDIOLOGY.
[2020-04-27] MEDS: LISINOPRIL 10 MG TABLET PO SCH (08:45)
[2020-04-27] MEDS: VANCOMYCIN 1GM+NS 250ML 250 ML IV SCH ×2 (08:45→21:21)
[2020-04-27] MEDS: ASCORBIC ACID 500 MG TAB PO SCH (08:45)
[2020-04-27] MEDS: FAMOTIDINE 20MG TAB 20 MG TAB PO SCH (08:45)
[2020-04-27] MEDS: HYDRALAZINE HCL 20 MG/ML VIAL IV PRN (19:30)
[2020-04-27] MEDS: ATORVASTATIN CALCIUM 20 MG TABLET PO SCH (21:21)
[2020-04-27] MEDS: ZOLPIDEM TARTRATE 5 MG TAB PO SCH (21:21)
[2020-04-28] MEDS: AMPICILLIN 2GM+NS 100ML 100 ML IV SCH (04:00)
[2020-04-28 04:46] VITALS: BP 177/67
[2020-04-28] MEDS: HYDRALAZINE HCL 20 MG/ML VIAL IV PRN (04:55)
[2020-04-28 05:27] LABS: BASOPHILS % (AUTO) 0.1 % (0.0-5.0); EOSINOPHILS % (AUTO) 0.5 % (0.0-8.0); HEMATOCRIT 36.1 % (42-54); LYMPHOCYTES % (AUTO) 17.2 % (21.0-51.0); MEAN CORPUSCULAR HEMOGLOBIN 29.2 pg (27.0-33.0); MEAN CORPUSCULAR HGB CONC 33.5 g/dL (32.0-36.0); MEAN CORPUSCULAR VOLUME 87.2 fL (79-99); MONOCYTES % (AUTO) 4.6 % (3.0-13.0); NEUTROPHILS % (AUTO) 77.5 % (40.0-77.0); PLATELET COUNT (AUTO) 177 K/uL (130-400); RED BLOOD CELL COUNT(AUTO) 4.14 MIL/uL (4.50-6.20); RED CELL DISTRIBUTION WIDTH 13.6 % (11.0-15.5)
[2020-04-28 05:46] LABS: CREATININE 0.9 mg/dL (0.5-1.5); CRP QUANTITATIVE 99.5 mg/L (0.00-9.0); POTASSIUM 3.3 mmol/L (3.5-5.1)
[2020-04-28] MEDS ORDERED: SODIUM CHLORIDE 0.9% 500ML 500 ML IV ONE (06:45)
[2020-04-28] MEDS ORDERED: SODIUM CHLORIDE 0.9% 500ML 500 ML IV SCH (06:45)
--- NOTE | 2020-04-28 07:00 | NUR ---
Blood Pressure Patient Blood pressure decreased to 74/33 after medicated with Hydralazine this am. Dr. Fernandez informed with orders to give NS bolus at this time. Pt was placed in Trendelenburg position. BP rechecked at 146/60, HR 66. bolus not administered at this time.
[2020-04-28] MEDS: INSULIN HUMULIN R 100 UNIT/ML 3ML SQ SCH ×4 (07:30→20:44)
[2020-04-28] MEDS: POTASSIUM CHLORIDE 20 MEQ ERTAB PO PRN ×2 (10:35→18:43)
[2020-04-28] MEDS: FAMOTIDINE 20MG TAB 20 MG TAB PO SCH (10:35)
[2020-04-28] MEDS: LISINOPRIL 10 MG TABLET PO SCH (10:35)
[2020-04-28] MEDS: ASCORBIC ACID 500 MG TAB PO SCH (10:35)
[2020-04-28] MEDS: VANCOMYCIN 1GM+NS 250ML 250 ML IV SCH ×2 (10:36→20:24)
[2020-04-28 11:58] VITALS: BP 137/56
[2020-04-28] MEDS ORDERED: HYDRALAZINE HCL 20 MG/ML VIAL IV PRN (14:30)
[2020-04-28] MEDS ORDERED: TAMSULOSIN HCL 0.4 MG CAP.ER.24H ONE (15:27)
[2020-04-28] MEDS: AMLODIPINE BESYLATE 2.5 MG TAB PO SCH (15:31)
[2020-04-28 16:00] VITALS: BP 137/63
--- NOTE | 2020-04-28 16:12 | NUR ---
PPM Follow-up Dr. Gomez cleared patient for PPM insertion. Left message with Dr. Pichardo, pending response.
[2020-04-28 19:58] VITALS: BP 160/64
[2020-04-28] MEDS: ZOLPIDEM TARTRATE 5 MG TAB PO SCH (20:24)
[2020-04-28] MEDS: ATORVASTATIN CALCIUM 20 MG TABLET PO SCH (20:24)
[2020-04-28 23:07] VITALS: BP 125/64
--- NOTE | 2020-04-29 | NUR ---
URINE OUTPUT DAVIS CATHETER DISCONTINUED ON THE A.M SHIFT. PATIENT DUE TO VOID AT 2330, NO URINE NOTED. BLADDER SCAN COMPLETED PERFORMED WITH 77MLS. PATIENT GIVEN 240MLS OF JUICE AT THIS TIME, WILL REASSESS IN 2 HOURS AND NOTIFY MD NEEDED.
--- NOTE | 2020-04-29 02:12 | NUR ---
URINE OUTPUT PATIENT ENCOURAGED DRANK WATER, JUICE, TAP TURNED ON TO STIMULATE DESIRE TO VOID. PLACED ON BEDSIDE COMMODE WITH NO RESULTS. BLADDER SCAN REPEATED WITH 133MLS OF URINE. DR. NAGEL INFORMED WITH ORDER TO REINSERT THE DAVIS CATHETER.
--- NOTE | 2020-04-29 02:41 | NUR ---
VOIDED WENT TO ROOM TO REINSERT DAVIS CATHETER ORDER BY DR. NAGEL. PATIENT'S BED LINEN AND GOWN FOUND TO BE WET WITH URINE. HYGIENIC NEEDS MET. PATIENT LEFT COMFORTABLE IN BED. WILL CONTINUE TO MONITOR URINE OUTPUT FOR THE REMAINDER OF THE SHIFT.
[2020-04-29 03:50] VITALS: BP 136/54
[2020-04-29 04:57] LABS: BASOPHILS % (AUTO) 0.1 % (0.0-5.0); EOSINOPHILS % (AUTO) 0.6 % (0.0-8.0); HEMATOCRIT 33.5 % (42-54); LYMPHOCYTES % (AUTO) 13.5 % (21.0-51.0); MEAN CORPUSCULAR HGB CONC 33.1 g/dL (32.0-36.0); MEAN CORPUSCULAR VOLUME 87.5 fL (79-99); MONOCYTES % (AUTO) 5.9 % (3.0-13.0); NEUTROPHILS % (AUTO) 79.6 % (40.0-77.0); PLATELET COUNT (AUTO) 168 K/uL (130-400); RED BLOOD CELL COUNT(AUTO) 3.83 MIL/uL (4.50-6.20); RED CELL DISTRIBUTION WIDTH 13.8 % (11.0-15.5); WHITE BLOOD COUNT (AUTO) 7.1 K/uL (4.8-10.8)
[2020-04-29 05:41] LABS: CRP QUANTITATIVE 80.9 mg/L (0.00-9.0); POTASSIUM 3.5 mmol/L (3.5-5.1)
[2020-04-29 05:42] LABS: CREATININE 0.9 mg/dL (0.5-1.5)
[2020-04-29] MEDS: INSULIN HUMULIN R 100 UNIT/ML 3ML SQ SCH ×4 (05:56→21:00)
[2020-04-29] MEDS: VANCOMYCIN 1GM+NS 250ML 250 ML IV SCH ×2 (09:34→21:02)
[2020-04-29] MEDS: FAMOTIDINE 20MG TAB 20 MG TAB PO SCH (09:34)
[2020-04-29] MEDS: AMLODIPINE BESYLATE 2.5 MG TAB PO SCH (09:34)
[2020-04-29] MEDS: TAMSULOSIN HCL 0.4 MG CAP.ER.24H PO SCH (09:34)
[2020-04-29] MEDS: ASCORBIC ACID 500 MG TAB PO SCH (09:34)
[2020-04-29] MEDS: LISINOPRIL 10 MG TABLET PO SCH (09:35)
[2020-04-29 09:37] VITALS: BP 134/64
--- NOTE | 2020-04-29 09:51 | NUR ---
RDSCREEN - LOS X 12 Pt admitted with Acute Encephalopathy. Positive for COVID-19. Heart Healthy, 75gm CC diet order in place. No report of GI distress, poor to fair PO intake. Monitored labs: BG 156, Ca 7.5, CRP 80.90, Alb 2.5. Altered mental status Recommend Glucerna TID Recommend 60mL ProMod QD Recommend continue diet order as medically feasible RD to continue to monitor. Please notify as additional nutrition concerns arise. Thank you. Addendum: 04/29/20 at [address] Amended: Links added.
[2020-04-29] MEDS ORDERED: LISI10TA7 PO (11:06)
[2020-04-29] MEDS ORDERED: TAMS-1 PO (11:06)
[2020-04-29] MEDS ORDERED: ATOR20TA65 PO (11:06)
[2020-04-29] MEDS ORDERED: AMLO2.5T2 PO (11:06)
[2020-04-29] MEDS ORDERED: ASCO500T20 PO (11:06)
[2020-04-29 12:00] VITALS: BP 132/56
--- NOTE | 2020-04-29 13:28 | NUR ---
DR BENNETT ROUND. STATED PT CAN'T GO HOME BECAUSE OF BACTEREMIA AND NEED TO CONTINUE TWO MORE WEEKS OF IV ABX. ALSO TO MONITOR COMPLETE HEART BLOCK. DR NAGEL INFORMED MALTHOUSE LABORER; BERT ABOUT CHANGES IN POC AND DISCHARGE PLANNING. WILL CONT TO MONITOR.
[2020-04-29 16:03] VITALS: BP 100/47
[2020-04-29 19:33] VITALS: BP 132/59
[2020-04-29] MEDS: ZOLPIDEM TARTRATE 5 MG TAB PO SCH (21:02)
[2020-04-29] MEDS: ATORVASTATIN CALCIUM 20 MG TABLET PO SCH (21:02)
[2020-04-29 23:00] VITALS: BP 129/49
[2020-04-30] MEDS: ACETAMINOPHEN 325 MG TAB PO PRN ×2 (00:39→17:06)
[2020-04-30 03:33] VITALS: BP 110/47
[2020-04-30 05:22] LABS: BASOPHILS % (AUTO) 0.1 % (0.0-5.0); EOSINOPHILS % (AUTO) 0.5 % (0.0-8.0); HEMATOCRIT 34.4 % (42-54); LYMPHOCYTES % (AUTO) 14.8 % (21.0-51.0); MEAN CORPUSCULAR HEMOGLOBIN 29.4 pg (27.0-33.0); MEAN CORPUSCULAR HGB CONC 33.7 g/dL (32.0-36.0); MEAN CORPUSCULAR VOLUME 87.1 fL (79-99); MONOCYTES % (AUTO) 5.4 % (3.0-13.0); NEUTROPHILS % (AUTO) 78.9 % (40.0-77.0); PLATELET COUNT (AUTO) 200 K/uL (130-400); RED BLOOD CELL COUNT(AUTO) 3.95 MIL/uL (4.50-6.20); RED CELL DISTRIBUTION WIDTH 13.5 % (11.0-15.5); WHITE BLOOD COUNT (AUTO) 7.8 K/uL (4.8-10.8)
[2020-04-30 05:43] LABS: CREATININE 0.9 mg/dL (0.5-1.5); CRP QUANTITATIVE 76.7 mg/L (0.00-9.0); POTASSIUM 3.2 mmol/L (3.5-5.1)
[2020-04-30] MEDS: INSULIN HUMULIN R 100 UNIT/ML 3ML SQ SCH ×4 (07:30→21:00)
[2020-04-30 08:00] VITALS: BP 138/58
[2020-04-30] MEDS: ASCORBIC ACID 500 MG TAB PO SCH (09:00)
[2020-04-30] MEDS: VANCOMYCIN 1GM+NS 250ML 250 ML IV SCH ×2 (09:00→21:00)
[2020-04-30] MEDS: FAMOTIDINE 20MG TAB 20 MG TAB PO SCH (09:00)
[2020-04-30] MEDS: AMLODIPINE BESYLATE 2.5 MG TAB PO SCH (09:00)
[2020-04-30] MEDS: TAMSULOSIN HCL 0.4 MG CAP.ER.24H PO SCH (09:00)
[2020-04-30] MEDS: LISINOPRIL 10 MG TABLET PO SCH (09:00)
[2020-04-30 12:20] VITALS: BP 127/64
[2020-04-30 16:00] VITALS: BP 130/61
[2020-04-30 19:52] VITALS: BP 126/50
[2020-04-30] MEDS: ATORVASTATIN CALCIUM 20 MG TABLET PO SCH (21:00)
[2020-04-30] MEDS: ZOLPIDEM TARTRATE 5 MG TAB PO SCH (21:00)
[2020-04-30 23:54] VITALS: BP 159/68
[2020-05-01 05:07] VITALS: BP 143/60
[2020-05-01] MEDS: INSULIN HUMULIN R 100 UNIT/ML 3ML SQ SCH ×4 (06:33→21:00)
[2020-05-01 07:00] VITALS: BP 147/57
[2020-05-01] MEDS: ASCORBIC ACID 500 MG TAB PO SCH (09:00)
[2020-05-01] MEDS: TAMSULOSIN HCL 0.4 MG CAP.ER.24H PO SCH (09:00)
[2020-05-01] MEDS: LISINOPRIL 10 MG TABLET PO SCH (10:50)
[2020-05-01] MEDS: AMLODIPINE BESYLATE 2.5 MG TAB PO SCH (10:50)
[2020-05-01] MEDS: VANCOMYCIN 1GM+NS 250ML 250 ML IV SCH (10:50)
[2020-05-01] MEDS: FAMOTIDINE 20MG TAB 20 MG TAB PO SCH (10:50)
[2020-05-01 11:16] VITALS: BP 131/54
[2020-05-01 15:35] VITALS: BP 161/94
[2020-05-01 19:15] VITALS: BP 160/69
[2020-05-01] MEDS: ZOLPIDEM TARTRATE 5 MG TAB PO SCH (21:00)
[2020-05-01] MEDS: ATORVASTATIN CALCIUM 20 MG TABLET PO SCH (21:00)
[2020-05-02 00:30] VITALS: BP 133/59
--- NOTE | 2020-05-02 05:45 | NUR ---
SHIFT UPDATE. PATIENT IN BED RESTING QUIETLY AT THIS TIME. NO C/O PAIN OR DISCOMFORT. PATIENT HAS 1 TO 1 STAFF AT ROOM ENTRANCE FOR SAFETY. PLEASANT AND COOPERATIVE WITH CARE EASILY REDIRECTED. CALL DEVICE WITHIN REACH WILL CONT. TO MONITOR.
[2020-05-02 06:13] VITALS: BP 149/57
[2020-05-02] MEDS: INSULIN HUMULIN R 100 UNIT/ML 3ML SQ SCH ×4 (06:37→21:00)
[2020-05-02 07:18] VITALS: BP 151/59
[2020-05-02] MEDS: LISINOPRIL 10 MG TABLET PO SCH (08:05)
[2020-05-02] MEDS: FAMOTIDINE 20MG TAB 20 MG TAB PO SCH (08:05)
[2020-05-02] MEDS: AMLODIPINE BESYLATE 2.5 MG TAB PO SCH (08:06)
[2020-05-02] MEDS: ASCORBIC ACID 500 MG TAB PO SCH (08:06)
[2020-05-02] MEDS: TAMSULOSIN HCL 0.4 MG CAP.ER.24H PO SCH (08:06)
--- NOTE | 2020-05-02 10:00 | NUR ---
cm note call made to yue spoke to Deonna montero and states pt is approved, however needs to be of 1:1 sitter for 24hrs prior to transfer. updated charge nurse vince.
[2020-05-02 11:45] VITALS: BP 115/55
[2020-05-02] MEDS: POTASSIUM CHLORIDE 10% ELIXIR 20 MEQ/15 ML UDCUP PO PRN (15:48)
[2020-05-02 16:00] VITALS: BP 13/51
[2020-05-02] MEDS: POTASSIUM CHLORIDE 20 MEQ ERTAB PO PRN (18:04)
[2020-05-02 20:00] VITALS: BP 118/58
[2020-05-02] MEDS: ZOLPIDEM TARTRATE 5 MG TAB PO SCH (22:07)
[2020-05-02] MEDS: ATORVASTATIN CALCIUM 20 MG TABLET PO SCH (22:08)
[2020-05-03] VITALS (7 sets, daily range): BP systolic 110–139; BP diastolic 48–73
[2020-05-03] MEDS: INSULIN HUMULIN R 100 UNIT/ML 3ML SQ SCH ×4 (06:24→21:00)
[2020-05-03] MEDS: LISINOPRIL 10 MG TABLET PO SCH (08:48)
[2020-05-03] MEDS: TAMSULOSIN HCL 0.4 MG CAP.ER.24H PO SCH (08:48)
[2020-05-03] MEDS: AMLODIPINE BESYLATE 2.5 MG TAB PO SCH (08:49)
[2020-05-03] MEDS: ASCORBIC ACID 500 MG TAB PO SCH (08:49)
[2020-05-03] MEDS: FAMOTIDINE 20MG TAB 20 MG TAB PO SCH (08:49)
--- NOTE | 2020-05-03 10:29 | NUR ---
FALL Pt one to one sitter discontinued 05/02/20 at 1230 per Solara for acceptance to facility. Pt calm and cooperative all morning. Pt oriented multiple of times to not get up without assistance. 9:30am Pt observed getting up from chair with ground level fall. Pt assisted with multiple nurses to chair. No LOC noted. No neuro changes observed. Pt oriented x 2 at baseline. No hematoma or bruising noted to head. No obvious injury observed. Charge nurse Gracie by bedside. 9:40am Dr Vale by bedside. Orders for CT Head attained, one to one sitter resumed. Radha COOLEY by bedside for safety. 9:45am: Apurva, Daughter made aware of fall and verbalizes understanding of plan of care. Pt in NAD. AM bath given by YASIR. No complaints at this time. Interacting well. Awaiting CT
--- NOTE | 2020-05-03 11:04 | NUR ---
Pt to CT
--- NOTE | 2020-05-03 11:14 | NUR ---
cm note call received from [facility] that pt could be accepted, however updated, pt on 1:1 sitter , due to fall. per Deonna from [facility]. unable to accept today.
--- NOTE | 2020-05-03 12:00 | NUR ---
cm note received call from daughter emir updated on no transfer to [facility] for today, she requested to speak to charge nurse regarding possible visitation and states family can assist with sitter at bedside.
--- NOTE | 2020-05-03 16:08 | NUR ---
Dr Vale by bedside for reassessment. Pt appearing more agitated. Attempting to get up and "go home" multiple of times despite redirection. Dr Vale aware
[2020-05-03] MEDS ORDERED: RISPERIDONE 1 MG TABLET PO PRN (16:30)
--- NOTE | 2020-05-03 18:53 | NUR ---
Update Pt NAD. Spoke with daughters via Hospital iPad zoom. Sitter by bedside
[2020-05-03] MEDS: ZOLPIDEM TARTRATE 5 MG TAB PO SCH (21:57)
[2020-05-03] MEDS: ATORVASTATIN CALCIUM 20 MG TABLET PO SCH (21:57)
[2020-05-04 04:00] VITALS: BP 144/59
[2020-05-04 08:00] VITALS: BP 112/65
[2020-05-04] MEDS: INSULIN HUMULIN R 100 UNIT/ML 3ML SQ SCH ×3 (08:30→16:30)
[2020-05-04] MEDS: FAMOTIDINE 20MG TAB 20 MG TAB PO SCH (09:40)
[2020-05-04] MEDS: ASCORBIC ACID 500 MG TAB PO SCH (09:40)
[2020-05-04] MEDS: TAMSULOSIN HCL 0.4 MG CAP.ER.24H PO SCH (09:40)
[2020-05-04] MEDS: AMLODIPINE BESYLATE 2.5 MG TAB PO SCH (09:40)
[2020-05-04] MEDS: LISINOPRIL 10 MG TABLET PO SCH (09:41)
[2020-05-04 12:00] VITALS: BP 134/48
[2020-05-04] MEDS ORDERED: AMPICILLIN 2GM+NS 100ML 100 ML IV SCH (15:30)
--- NOTE | 2020-05-04 16:22 | NUR ---
DC PLAN SPOKE TO FAMILY AND TO JOE FROM LT. PATIENT ACCEPTED TO [facility] WITH 1:1 SITTER. COVID FORM AND MOT IN CHART. PENDING MD AND SILVIANO SIGNATURE. CALLED HOUSE NO ANSWER. LET CHARGE NURSE KNOW OF PENDING SIGNATURE. EMS UPDATED WITH [place] INFO AND FAXED TO [facility]. Addendum: 05/04/20 at 1625 by BERT COBIAN RN CM Amended: Links added.
[2020-05-04 16:45] VITALS: BP 156/62
--- NOTE | 2020-05-04 17:59 | NUR ---
[facility] transfer Report given to receiving nurse Rell. All questions answered and addressed. VS stable Apurva daughter made aware of pt transfer to [facility] room 26 EMS called and made aware pt is ready for olive picker. VS stable. Pt NAD
--- NOTE | 2020-05-04 19:00 | NUR ---
ACCEPTED CARE ACCEPTED CARE REPORT RECEIVED USING SBAR FORMAT
[2020-05-04 20:37] VITALS: BP 130/74
--- NOTE | 2020-05-04 21:05 | NUR ---
TRANSFERRED PATIENT PICKED UP BY [facility]. TRANSFERRED FROM BED TO STRETCHER WITH ONE PERSON ASSIST. TOLERATED WITHOUT INCIDENCE. MEDICAL RECORDS GIVEN TO TRANSPORTER.
== END 2020-05-04 21:00 | DRG 871 ==
LOC: EDH 23:45 → EDHIP 04-17 01:50 → 2DH 04-17 04:17 → 4AH 04-18 21:22 → 2AH 04-25 18:30
PROVIDERS: ADMIT Internal Medicine; ATTEND Internal Medicine
PROC: 02HV33Z Insertion of Infusion Device into Superior Vena Cava, Percutaneous Approach (ICD-10-PCS; principal; 2020-04-24)
DX: A41.89 Other specified sepsis (principal); U07.1 COVID-19; G93.41 Metabolic encephalopathy; I21.A1 Myocardial infarction type 2; J12.89 Other viral pneumonia; N17.9 Acute kidney failure, unspecified; I44.2 Atrioventricular block, complete; N39.0 Urinary tract infection, site not specified; M47.815 Spondylosis without myelopathy or radiculopathy, thoracolumbar region; F03.90 Unspecified dementia, unspecified severity, without behavioral disturbance, psychotic disturbance, mood disturbance, and anxiety; E11.9 Type 2 diabetes mellitus without complications; E78.5 Hyperlipidemia, unspecified; I11.9 Hypertensive heart disease without heart failure; E66.9 Obesity, unspecified; E87.6 Hypokalemia; Z68.25 Body mass index [BMI] 25.0-25.9, adult; Z85.46 Personal history of malignant neoplasm of prostate; Z79.899 Other long term (current) drug therapy; Z83.3 Family history of diabetes mellitus; B96.89 Other specified bacterial agents as the cause of diseases classified elsewhere
CPT/HCPCS: 36415; 36600; 70450; 71045; 71275; 80048; 80053; 80061; 80202; 81003; 82550; 82803; 82948; 83036; 83605; 83615; 83874; 84132; 84145; 84484; 85025; 85378; 85610; 85730; 86140; 86900; 86901; 87040; 87088; 87426; 87804; 93005; 93306; 93356; 97039; A4344; A6454; C1894; G0378; J0290; J0360; J0456; J0696; J1644; J1650; J1815; J3370; J3490; J7040; J7050; Q9967; U0003

== ENCOUNTER → 2020-08-13 | Outpatient (CLI) | payer OTHER, MEDICARE ==
[~2020-08-13] MED LIST changes: +AMLO2.5T2 PO; +ASCO500T20 PO; +ATOR20TA65 PO; +LISI10TA7 PO; +TAMS-1 PO
== END | disposition home or self-care (01) ==
LOC: SHCH 15:37
PROVIDERS: ATTEND Internal Medicine Cardiovascular Disease
DX: L98.499 Non-pressure chronic ulcer of skin of other sites with unspecified severity (principal)
CPT/HCPCS: 93925